=== PATIENT | male | born 1960 | race Caucasian/White ===

== ENCOUNTER → 2019-02-01 | Day surgery (SDC) | payer OTHER ==
[~2019-02-01] VITALS: Ht 190.5 cm; Wt 80.5 kg
[~2019-02-01] MED LIST: ADV500 IH; ALBU8.5H8 IH; ALBUTEROL SULFATE 2.5 MG/0.5 ML NEB SOLUTION NEB ONE; ARIP5TAB8 PO; ASPI81 PO; ATOR40TA28 PO; BENZOCAINE 20% 50 MCG/SPRAY 57 GM TP ONE; EZET10TA13 PO; FAMO20 PO; FentaNYL CITRATE-PF 100 MCG/2 ML VIAL ONE; HYD25 PO; LIDOCAINE 2% 5 ML JELLY TP ONE; LIDOCAINE 4% 50 ML SOLUTION TP ONE; MIDAZOLAM HCL 2 MG/2 ML VIAL ONE; MIRT15 PO; MONT10TA21 PO; MethylPREDNISolone SOD SUCC 125 MG/2 ML VIAL IVP ONE; OXYGEN THERAPY IH SCH; PROP10TA73 PO; SERT100T12 PO; SODIUM CHLORIDE 0.9% 1,000 ML IV ONE; TIOT4MIS2 IH
== END | disposition home or self-care (01) ==
LOC: SURGERY 05:34
PROVIDERS: ATTEND Internal Medicine Critical Care Medicine
DX: J38.4 Edema of larynx (principal); B37.0 Candidal stomatitis; J45.909 Unspecified asthma, uncomplicated; J98.8 Other specified respiratory disorders; J44.9 Chronic obstructive pulmonary disease, unspecified; I25.2 Old myocardial infarction; M19.90 Unspecified osteoarthritis, unspecified site; Z88.6 Allergy status to analgesic agent; Z79.01 Long term (current) use of anticoagulants; Z79.899 Other long term (current) drug therapy; Z98.890 Other specified postprocedural states
CPT/HCPCS: 31623; 31624; 71045; 87070; 87101; 87205; 87206; 87220; 88108; 88312; J2250; J2930; J3010; J7030; 87015